=== PATIENT | female | born 1945 | race Two or more races ===

== ENCOUNTER 2019-06-16 11:38 | Outpatient (CLI) | payer OTHER | END 2019-06-16 11:41 | disposition home or self-care (01) | LOC: MRI 11:38 | DX: M25.511 Pain in right shoulder (principal) | CPT/HCPCS: 73221 ==

== ENCOUNTER 2020-02-12 18:34 | Emergency (ER) | payer OTHER ==
[~2020-02-12] VITALS: Ht 157.5 cm; Wt 62.6 kg
[2020-02-12] MEDS ORDERED: ZESTRIL20 MG (18:45)
[2020-02-12] MEDS ORDERED: CRESTOR40 MG (18:45)
== END 2020-02-12 19:22 | disposition home or self-care (01) ==
LOC: ER 18:34
DX: S93.492A Sprain of other ligament of left ankle, initial encounter (principal); W06.XXXA Fall from bed, initial encounter; Y93.89 Activity, other specified; Y92.092 Bedroom in other non-institutional residence as the place of occurrence of the external cause; Y99.8 Other external cause status

== ENCOUNTER 2020-05-27 05:48 | Emergency (ER) | payer OTHER ==
[~2020-05-27] VITALS: Ht 157.5 cm; Wt 64.0 kg
[~2020-05-27 05:48] MED LIST: CRESTOR40 MG; ZESTRIL20 MG
[2020-05-27] MEDS ORDERED: ALL DAY ALLERGY10 M3 PO (10:24)
[2020-05-27] MEDS ORDERED: MEDROLPACK PO (10:24)
== END 2020-05-27 10:28 | disposition home or self-care (01) ==
LOC: ER 05:48
DX: L27.1 Localized skin eruption due to drugs and medicaments taken internally (principal); R60.0 Localized edema; T46.4X5A Adverse effect of angiotensin-converting-enzyme inhibitors, initial encounter; Y92.89 Other specified places as the place of occurrence of the external cause

== ENCOUNTER 2020-07-12 11:42 | Outpatient (CLI) | payer OTHER ==
[~2020-07-12 11:42] MED LIST changes: +ALL DAY ALLERGY10 M3 PO; +MEDROLPACK PO
== END 2020-07-12 11:44 | disposition home or self-care (01) ==
LOC: NUCLEAR 11:42
PROVIDERS: ATTEND Specialist
DX: M81.0 Age-related osteoporosis without current pathological fracture (principal)